=== PATIENT | male | born 1975 | race Hispanic/Latino ===

== ENCOUNTER 2018-11-28 23:52 | Emergency (ER) | payer BC ==
[2018-11-29] MEDS ORDERED: TETANUS & DIPHTHERIA TOX,ADULT 0.5 ML VIAL ONE (00:22)
--- NOTE | 2018-11-29 00:29 | ER ---
Nurse's Notes [facility] Name: Filiberto Melo Age: 43 yrs Sex: Male : 1975 Arrival Date: 11/28/2018 Time: 23:54 Bed 13 Private MD: Diagnosis: Bat fell on head. 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 Transition of care: patient was not received from another setting of care. Onset of symptoms was November 29, 2018. Risk Assessment: Do you want to hurt yourself or someone else? Patient reports no desire to harm self or others. Initial Sepsis Screen: Does the patient meet any 2 criteria? No. Patient's initial sepsis screen is negative. Does the patient have a suspected source of infection? No. Patient's initial sepsis screen is negative. Care prior to arrival: None. 00:07 Method Of Arrival: Ambulatory lp1 00:07 Acuity: MILLICENT 5 lp1 Historical: - Allergies: 00:09 No Known Allergies; lp1 - Home Meds: 00:09 None [Active]; lp1 - PMHx: 00:09 None; lp1 - PSHx: 00:09 Appendectomy; lp1 - Immunization history:: Adult Immunizations up to date. - Social history:: Smoking status: Patient uses tobacco products, denies chronic smoking, but will smoke occasionally. - Ebola Screening: : No symptoms or risks identified at this time. Screenin:09 Abuse screen: Denies threats or abuse. Denies injuries from another. Nutritional lp1 screening: No deficits noted. Tuberculosis screening: No symptoms or risk factors identified. Fall Risk None identified. Assessment: 00:25 General: Appears in no apparent distress. comfortable, Behavior is calm, cooperative, jb4 appropriate for age, no visibile bite or scratch carter noted to the scalp.. Pain: Denies pain. Neuro: Level of Consciousness is awake, alert, obeys commands, Oriented to person, place, time, situation. Cardiovascular: Patient's skin is warm and dry. Respiratory: Airway is patent Respiratory effort is even, unlabored, Respiratory pattern is regular, symmetrical. GI: No deficits noted. No signs and/or symptoms were reported involving the gastrointestinal system. : No deficits noted. No signs and/or symptoms were reported regarding the genitourinary system. EENT: No deficits noted. No signs and/or symptoms were reported regarding the EENT system. Derm: Skin is intact, Skin is pink, warm \\T\\ dry. Musculoskeletal: Circulation, motion, and sensation intact. Range of motion: intact in all extremities. Vital Signs: 00:08 BP 145 / 96; Pulse 81; Resp 18; Temp 99.1(O); Pulse Ox 99% on R/A; Weight 97.52 kg; lp1 Height 5 ft. 7 in. (170.18 cm); Pain 0/10; 00:08 Body Mass Index 33.67 (97.52 kg, 170.18 cm) lp1 ED Course: 11/28 23:54 Patient arrived in ED. ds1 11/29 00:07 Tito Rushing MD is Attending Physician. pkl 00:08 Triage completed. lp1 00:09 Arm band placed on right wrist. lp1 00:09 Patient has correct armband on for positive identification. lp1 00:14 Oneil Rider, RN is Primary Nurse. jb4 00:38 No provider procedures requiring assistance completed. Patient did not have IV access jb4 during this emergency room visit. Administered Medications: 00:25 Drug: Tetanus-Diphtheria Toxoid Adult 0.5 ml {Tube And Rod Straightener: Kuli Kuli. Exp: jb4 07/05/2020. Lot #: [id number]. } Route: IM; Site: right deltoid; 00:38 Follow up: Response: No adverse reaction jb4 Outcome: 00:29 Discharge ordered by . pk 00:38 Discharged to home ambulatory. jb4 00:38 Condition: stable 00:38 Discharge instructions given to patient, Instructed on discharge instructions, follow up and referral plans. Demonstrated understanding of instructions, follow-up care. 00:38 Patient left the ED. jb4 Signatures: Tito Rushing MD MD pkl Sanford, Demi ds1 Angela Dunn, SUKHJINDER RN lp1 Oneil Rider RN RN jb4
--- NOTE | 2018-11-29 00:30 | EDPHYS ---
Physician Documentation [facility] Name: Filiberto Melo Age: 43 yrs Sex: Male : 1975 Arrival Date: 11/28/2018 Time: 23:54 Bed 13 Private MD: ED Physician Tito Rushing HPI: 11/29 00:20 This 43 yrs old Male presents to ER via Ambulatory with complaints of Attacked pkl by Bat. 00:20 The patient was bitten on the scalp. Onset: The symptoms/episode began/occurred just pkl prior to arrival. Bat fell on head while he was in the shower. Unsure if he was bitten by the bat.. Historical: - Allergies: 00:09 No Known Allergies; lp1 - Home Meds: 00:09 None [Active]; lp1 - PMHx: 00:09 None; lp1 - PSHx: 00:09 Appendectomy; lp1 - Immunization history:: Adult Immunizations up to date. - Social history:: Smoking status: Patient uses tobacco products, denies chronic smoking, but will smoke occasionally. - Ebola Screening: : No symptoms or risks identified at this time. ROS: 00:20 Eyes: Negative for injury, pain, redness, and discharge, ENT: Negative for injury, pkl pain, and discharge, Neck: Negative for injury, pain, and swelling, Cardiovascular: Negative for chest pain, palpitations, and edema, Respiratory: Negative for shortness of breath, cough, wheezing, and pleuritic chest pain, Abdomen/GI: Negative for abdominal pain, nausea, vomiting, diarrhea, and constipation, Back: Negative for injury and pain, : Negative for injury, bleeding, discharge, and swelling, MS/Extremity: Negative for injury and deformity. 00:20 Skin: Negative for rash. 00:20 Neuro: Negative for altered mental status. Exam: 00:20 Head/Face: Normocephalic, atraumatic. Eyes: Pupils equal round and reactive to light, pkl extra-ocular motions intact. Lids and lashes normal. Conjunctiva and sclera are non-icteric and not injected. Cornea within normal limits. Periorbital areas with no swelling, redness, or edema. ENT: Nares patent. No nasal discharge, no septal abnormalities noted. Tympanic membranes are normal and external auditory canals are clear. Oropharynx with no redness, swelling, or masses, exudates, or evidence of obstruction, uvula midline. Mucous membranes moist. Neck: Trachea midline, no thyromegaly or masses palpated, and no cervical lymphadenopathy. Supple, full range of motion without nuchal rigidity, or vertebral point tenderness. No Meningismus. Chest/axilla: Normal chest wall appearance and motion. Nontender with no deformity. No lesions are appreciated. Cardiovascular: Regular rate and rhythm with a normal S1 and S2. No gallops, murmurs, or rubs. Normal PMI, no JVD. No pulse deficits. Respiratory: Lungs have equal breath sounds bilaterally, clear to auscultation and percussion. No rales, rhonchi or wheezes noted. No increased work of breathing, no retractions or nasal flaring. Abdomen/GI: Soft, non-tender, with normal bowel sounds. No distension or tympany. No guarding or rebound. No evidence of tenderness throughout. Back: No spinal tenderness. No costovertebral tenderness. Full range of motion. MS/ Extremity: Pulses equal, no cyanosis. Neurovascular intact. Full, normal range of motion. Neuro: Awake and alert, GCS 15, oriented to person, place, time, and situation. Cranial nerves II-XII grossly intact. Motor strength 5/5 in all extremities. Sensory grossly intact. Cerebellar exam normal. Normal gait. 00:20 Skin: No definite bite noted on scalp. Vital Signs: 00:08 BP 145 / 96; Pulse 81; Resp 18; Temp 99.1(O); Pulse Ox 99% on R/A; Weight 97.52 kg; lp1 Height 5 ft. 7 in. (170.18 cm); Pain 0/10; 00:08 Body Mass Index 33.67 (97.52 kg, 170.18 cm) lp1 MDM: 00:07 Patient medically screened. pkl 00:20 Data reviewed: vital signs, nurses notes. pkl 00:20 ED course: Advised patient to follow up at [facility] tomorrow for possible pkl bat bite and rabies vaccinations. Patient understood instructions.. Administered Medications: 00:25 Drug: Tetanus-Diphtheria Toxoid Adult 0.5 ml {Flare Worker: [employer]. Exp: jb4 07/05/2020. Lot #: [id number]. } Route: IM; Site: right deltoid; 00:38 Follow up: Response: No adverse reaction jb4 Disposition: 11/29/18 00:29 Discharged to Home. Impression: Bat fell on head. Possible bat bite. - Condition is Stable. - Medication Reconciliation Form, Thank You Letter, Antibiotic Education, Prescription Opioid Use form. - Follow up: Private Physician; When: Tomorrow; Reason: Re-evaluation by your physician. - Problem is new. - Symptoms have improved. Signatures: Tito Rushing MD MD pkl Angela Dunn RN RN lp1 Oneil Rider RN RN jb4 Corrections: (The following items were deleted from the chart) 00:38 00:29 11/29/2018 00:29 Discharged to Home. Impression: Bat fell on head. Possible bat jb4 bite. Condition is Stable. Forms are Medication Reconciliation Form, Thank You Letter, Antibiotic Education, Prescription Opioid Use. Follow up: Private Physician; When: Tomorrow; Reason: Re-evaluation by your physician. Problem is new. Symptoms have improved. pkl
== END 2018-11-29 00:38 | disposition home or self-care (01) ==
LOC: ER 23:52
DX: Z71.1 Person with feared health complaint in whom no diagnosis is made (principal); W53.89XA Other contact with other rodent, initial encounter; Y93.E1 Activity, personal bathing and showering; Y92.9 Unspecified place or not applicable; Z23 Encounter for immunization; Z72.0 Tobacco use
CPT/HCPCS: 90471; 90714; 99283